=== PATIENT | male | born 1980 | race Caucasian/White ===

== ENCOUNTER 2020-09-19 10:22 | Emergency (ER) | payer BC, SELFPAY ==
[2020-09-19 10:38] VITALS: BP 127/89; PULSE 54; RESP 18; TEMP 37; O2SAT 100
--- NOTE | 2020-09-19 10:39 | ED.EYEPROB ---
HPI - Eye Problem General Stated complaint: Rt eye Time Seen by Provider: 09/19/20 10:39 Source: patient and RN notes reviewed Mode of arrival: ambulatory Limitations: no limitations History of Present Illness HPI Narrative: 39-year-old male presents to the [facility] with right upper eyelid swelling since yesterday. Denies any trauma. Denies any blurry vision or change in vision. No headaches. No drainage to the area. Patient was concerned that he had conjunctivitis. Has a history of anxiety/depression along with hypertension. Denies any fevers, nausea, vomiting, diarrhea. No chest pain or abdominal pain. Denies any sinus issues Related Data Home Medications Medication Instructions Recorded Confirmed escitalopram oxalate 5 mg PO DAILY 09/19/20 09/19/20 lisinopril 20 mg PO DAILY 09/19/20 09/19/20 Allergies Allergy/AdvReac Type Severity Reaction Status Date / Time No Known Allergies Allergy Verified 09/19/20 10:46 Review of Systems Review of Systems: All systems reviewed & are unremarkable except as noted in HPI and below Constitutional: Constitutional: Reports no additional constitutional complaints, Denies chills and Denies fever(s) Eyes: Eyes: Reports as per HPI, Denies change in vision and Denies photophobia Comments: Right upper eyelid redness and swelling ENT: Reports system reviewed and no additional complaints, except as documented, Denies dysphagia, Denies dizziness and Denies sore throat Cardiovascular: Cardiovascular: Reports no additional cardiovascular complaints and Denies chest pain Respiratory: Respiratory: Reports no additional respiratory complaints, Denies cough and Denies dyspnea Gastrointestinal: Gastrointestinal: Reports no additional gastrointestinal complaints, Denies abdominal pain, Denies nausea and Denies vomiting Musculoskeletal: Musculoskeletal: Reports no additional musculoskeletal complaints, Denies back pain, Denies arthralgias, Denies joint swelling and Denies muscle cramps Integumentary/Breasts: Skin/Breast: Reports system reviewed and no additional complaints, except as docu Neurologic: Reports system reviewed and no additional complaints, except as documented Psychiatric: Psychiatric: Reports no additional psychiatric complaints Allergic/Immunologic: Allergic/Immunologic: Reports no additional allergic/immunologic complaints, Denies lip swelling, Denies throat swelling and Denies tongue swelling PMFSH Past Medical History Medical History (Updated 09/19/20 @ 10:56 by Deena Tatum) Anxiety Depression Hypertension Family History Family History Father Hypertension Mother Carcinoma of colon Social History Social History Alcohol intake: current Comments At the time of my signature, I reviewed and agree with the nursing past medical, surgical, social, and family history. There is no relevant family history pertinent to the patient complaint. Exam Const: General: healthy appearing, no acute distress and alert Nutritional Appearance: well nourished Orientation/consciousness: patient oriented x3 Limitations: no limitations HENMT: Head: normal to inspection Ears: hearing grossly normal bilaterally, external ears normal, TM's normal bilaterally and EAC's normal General nose exam: Normal external nose present, Normal nares present and Normal nasal mucous membranes and turbinates present Face and sinus: normal facial exam Mouth: Yes Normal oral and palatal mucosa present, Yes lip normal and Yes tongue normal Throat: posterior oropharynx normal and uvula midline Eyes: Conjunctivae: conjunctival abnormality right (Right upper eyelid lateral aspect small stye noted) without injection and without discharge Pupils: Equal, round and reactive pupils present EOM: EOMs intact bilaterally Direct Ophthalmoscopy: no photophobia Neck: Neck: normal visual inspection and no lymp
== END 2020-09-19 10:50 | disposition home or self-care (01) ==
PROVIDERS: Emergency Provider Nurse Practitioner; PCP Physician Assistant
DX: H00.011 Hordeolum externum right upper eyelid (principal); I10 Essential (primary) hypertension; F41.9 Anxiety disorder, unspecified; F32.9 Major depressive disorder, single episode, unspecified
CPT/HCPCS: 99213; G0463

== ENCOUNTER → 2021-04-13 15:38 | Outpatient (REF) | payer BC, SELFPAY | LOC: ANHLAB 15:38 | PROVIDERS: PCP Physician Assistant; Visit Provider Nurse Practitioner | DX: D17.1 Benign lipomatous neoplasm of skin and subcutaneous tissue of trunk (principal) | CPT/HCPCS: 88304 ==

== ENCOUNTER 2022-12-09 17:43 | Emergency (ER) | payer BC, SELFPAY ==
[2022-12-09 17:51] VITALS: BP 137/81; PULSE 68; RESP 18; TEMP 36.4; O2SAT 100
--- NOTE | 2022-12-09 18:13 | ED.EAR ---
HPI - Ear Problem General Chief complaint: Ear Stated complaint: ear pain Source: patient and RN notes reviewed History of Present Illness HPI Narrative: 42-year-old male presents to urgent care with complaints left ear pain times 24 hours. Patient admits to swimming a lot in his new pool, daily. Patient states pain radiates down the side of his neck as well. Denies any fevers, chills, congestion, chest pain, shortness of breath, or vomiting. Patient has tried taking [id number] ear drops without relief. Related Data Home Medications Medication Instructions Recorded Confirmed escitalopram oxalate 5 mg tablet 10 mg PO DAILY 09/19/20 12/09/22 lisinopril 20 mg tablet 20 mg PO DAILY 09/19/20 12/09/22 Allergies Allergy/AdvReac Type Severity Reaction Status Date / Time No Known Allergies Allergy Verified 12/09/22 18:03 Review of Systems Review of Systems: CONSTITUTIONAL: Denies fever, chills, or sweats. EYES: Denies visual changes, redness, or discharge. ENT: left ear pain CARDIOVASCULAR: Denies chest pain, palpitations, or edema. RESPIRATORY: Denies cough or dyspnea. GASTROINTESTINAL: Denies abdominal pain, nausea, vomiting, or diarrhea. GENITOURINARY: Denies dysuria or hematuria. SKIN: Denies rash or itching. MUSCULOSKELETAL: Denies back pain, joint pain, or myalgia. NEUROLOGIC: Denies headache, numbness, or weakness. Pertinent positives per HPI. [facility] Past Medical History Medical History Anxiety Depression Hypertension Family History Family History Father Hypertension Mother Carcinoma of colon Social History Social History Smoking status: Never smoker Tobacco type: cigarettes Alcohol intake: current Substance use: never Comments At the time of my signature, I reviewed and agree with the nursing past medical, surgical, social, and family history. There is no relevant family history pertinent to the patient complaint. Exam Narrative: GENERAL: This is a well-nourished, well-developed patient, in no apparent distress. HEAD: normocephalic, atraumatic. EYES: Sclera clear/white. Vision is grossly intact. EARS: External ears normal, auditory canals clear and without drainage, right TM normal without perforation. Hearing grossly intact. Left TM erythremic and bulging. NOSE: External nose normal with no obvious nasal discharge, nares without redness, no rhinorrhea. THROAT: Mucous membranes moist, posterior pharynx clear. NECK: Neck supple, non-tender without lymphadenopathy, masses or thyromegaly. CARDIOVASCULAR: Regular rate RESPIRATORY: No respiratory distress SKIN: warm, intact with no suspicious lesions or rash, good texture and turgor. NEURO: awake, alert, and oriented to person, place and time. There were no obvious focal neurologic abnormalities. Course Course Level of Care: Express Care Visit Vital Signs Vital signs: Vital Signs Temperature 97.6 F 12/09/22 17:51 Pulse Rate 68 12/09/22 17:51 Respiratory Rate 18 12/09/22 17:51 Blood Pressure 137/81 12/09/22 17:51 Pulse Oximetry 100 12/09/22 17:51 Oxygen Delivery Room Air 12/09/22 17:51 Temperature 97.6 F 12/09/22 17:51 Pulse Rate 68 12/09/22 17:51 Respiratory Rate 18 12/09/22 17:51 Blood Pressure 137/81 12/09/22 17:51 Pulse Oximetry 100 12/09/22 17:51 Oxygen Delivery Room Air 12/09/22 17:52 reviewed Medical Decision Making MDM Narrative Medical decision making narrative: Take antibiotics as directed. May given ibuprofen and/or Tylenol as needed for pain and/or fever. Follow up with primary care provider in 7-10 days to have ear rechecked. Differential Diagnosis Differential Diagnosis: AOM, swimmers ear, cerumen impaction Vital Signs Vital Signs: Vital Signs Temperature 97.6
== END 2022-12-09 18:16 | disposition home or self-care (01) ==
PROVIDERS: Emergency Provider Nurse Practitioner Family; PCP Physician Assistant
DX: H66.90 Otitis media, unspecified, unspecified ear (principal); I10 Essential (primary) hypertension; Z79.899 Other long term (current) drug therapy
CPT/HCPCS: 99213; G0463

== ENCOUNTER 2023-12-16 03:46 | Day surgery (SDC) | payer BC, SELFPAY ==
--- NOTE | 2023-09-16 09:24 | SUR.PREOP ---
Patient rescheduled to 12/16/23 at 8 am due to doctor not being available.
[2023-11-24 13:51] VITALS: BMI 26.6
--- NOTE | 2023-12-15 10:47 | P.PNAN_ITS ---
Anes - Initial Pre Proc Eval Procedure: Operation Date: 12/16/23 08:00 Proposed Procedures p Colonoscopy - Luis Madden MD Date/Time: 12/15/23 10:47 Surgeon: Luis Madden MD Pre Op Diagnosis: Fam. Hx. colon CA Patient Data Age: 43 Gender: M Height: 1.75 m Weight: 81.8 kg Allergies Allergy/AdvReac Type Severity Reaction Status Date / Time No Known Allergies Allergy Verified 12/16/23 07:39 Home Medications Medication Instructions Recorded Confirmed Type escitalopram oxalate 5 mg tablet 10 mg PO DAILY 09/19/20 11/24/23 History lisinopril 20 mg tablet 20 mg PO DAILY 09/19/20 11/24/23 History Patient hx anesthesia problems: none Family hx anesthesia problems: none Results Review: All pre-operative results and documents have been reviewed as part of the pre- operative evaluation. [facility] Past Medical History Medical History (Updated 12/15/23 @ 10:48 by Burt Jacob DO) Anxiety Depression Hypertension PVC (premature ventricular contraction) Family History Family History Father Hypertension Mother Carcinoma of colon Social History Social History Years smoked: 25 Smoking status: Current every day smoker Tobacco type: cigarettes Alcohol intake: current Drinks per week: 3 Substance use: never Living arrangements: with family Spiritual care concerns: No Anes - Eval Final PreProcedure Day of Procedure 12/15/23 10:47 Patient weight: overweight Heart: regular rate and rhythm Lungs: clear to auscultation Airway: Mallampati scale class II Neurological: alert and oriented Last oral intake: >/= 8 hours ASA classification: II Emergent: no Anesthetic plan: proceed Anesthesia type and monitoring: general GIVS and standard monitoring Results Review: All pre-operative results and documents have been reviewed as part of the pre- operative evaluation. Informed Consent: The patient's anesthetic plan and its attendant risks and benefits were discussed with the patient/family/POA. Questions were solicited and answers provided to the satisfaction of the patient/family/POA.
[2023-12-16 07:31] VITALS: BP 120/94; PULSE 89; RESP 18; TEMP 36; O2SAT 99
[2023-12-16] MEDS: LACTATED RINGERS 1,000 ML 150 ML IV CONT (07:56)
--- NOTE | 2023-12-16 08:17 | PM.HPGS ---
History of Present Illness History of Present Illness Consent: Risks, benefits, and alternatives have been discussed and questions answered. Patient agrees to proceed with procedure. Chief complaint: Fam. Hx. colon CA Narrative: Luan Lundy is a 43 year old male here for colonoscopy, last one 5 years ago, mother had colon cancer Review of Systems Review of Systems: All systems reviewed & are unremarkable except as noted in HPI and below PMFSH Past Medical History Medical History (Updated 12/16/23 @ 08:19 by Luis Madden MD) Anxiety Depression Family history of colon cancer in mother Hypertension PVC (premature ventricular contraction) Family History Family History Father Hypertension Mother Carcinoma of colon Social History Social History Years smoked: 25 Smoking status: Current every day smoker Tobacco type: cigarettes Alcohol intake: current Drinks per week: 3 Substance use: never Living arrangements: with family Spiritual care concerns: No Meds Home Medications and Allergies Home Medications Medication Instructions Recorded Confirmed Type escitalopram oxalate 5 mg tablet 10 mg PO DAILY 09/19/20 11/24/23 History lisinopril 20 mg tablet 20 mg PO DAILY 09/19/20 11/24/23 History Allergies Allergy/AdvReac Type Severity Reaction Status Date / Time No Known Allergies Allergy Verified 12/16/23 07:39 Vital Signs Vital Signs - 24 hr 12/16/23 07:31 Temperature 96.8 F L Pulse Rate 89 Respiratory Rate 18 Blood Pressure 120/94 H Pulse Oximetry 99 Oxygen Delivery Room Air Exam Const: General: comfortable and no acute distress HENMT: Face/Nose/Sinus: Normal nares present Eyes: General: appearance normal, both eyes and all related structures Neck: Neck: no JVD Resp: Auscultation: clear to auscultation bilaterally Cardio: Rate: regular rate Rhythm: regular rhythm GI: Inspection: non-distended GI Palp: Yes Soft to palpation Skin: General skin exam: normal color Neuro: General: gait normal Speech: normal speech Extrem: General: normal to inspection Psych: Mental Status: mental status grossly normal Assessment and Plan Assessment and plan (1) Family history of colon cancer in mother: Code(s): Z80.0 - Family history of malignant neoplasm of digestive organs Status: Acute Assessment and Plan: colonoscopy
[2023-12-16 08:33] VITALS: BP 83/44; PULSE 68; RESP 21; O2SAT 96
[2023-12-16 08:43] VITALS: BP 84/46; PULSE 70; RESP 15; O2SAT 98
[2023-12-16 08:53] VITALS: BP 113/74; PULSE 73; RESP 28; O2SAT 100
== END 2023-12-16 09:00 | disposition home or self-care (01) ==
PROVIDERS: PCP Physician Assistant; Visit Provider Internal Medicine Gastroenterology
PROC: 0DJD8ZZ Inspection of Lower Intestinal Tract, Via Natural or Artificial Opening Endoscopic (ICD-10-PCS; CPT 45378; principal; 2023-12-16 08:00)
DX: Z12.11 Encounter for screening for malignant neoplasm of colon (principal); K64.8 Other hemorrhoids; Z80.0 Family history of malignant neoplasm of digestive organs; I10 Essential (primary) hypertension; I49.3 Ventricular premature depolarization; F41.9 Anxiety disorder, unspecified; F32.A Depression, unspecified; F17.210 Nicotine dependence, cigarettes, uncomplicated
CPT/HCPCS: 45378; J2704; J7120